=== PATIENT | female | born 1980 | race Caucasian/White ===

== ENCOUNTER 2017-02-01 08:58 | Emergency (ER) | payer MEDICAID, OTHER ==
[~2017-02-01] VITALS: Ht 165.1 cm; Wt 95.3 kg
[2017-02-01] MEDS ORDERED: ONDANSETRON ODT 4 MG TAB.RAPDIS SL ONE (09:38)
[2017-02-01] MEDS ORDERED: KETOROLAC TROMETHAMINE 60 MG INJ IM ONE ×2 (09:45→10:03)
[2017-02-01] MEDS ORDERED: HYDROCODONE/APAP 5-325MG TABLET PO ONE (09:45)
[2017-02-01] MEDS ORDERED: HYDROCODONE/APAP 5-325MG TABLET ONE (10:03)
[2017-02-01] MEDS ORDERED: ONDANSETRON ODT 4 MG TAB.RAPDIS ONE (10:03)
--- NOTE | 2017-02-01 10:03 | NUR ---
PT TAKEN OUT OF ROOM FOR XRAY
--- NOTE | 2017-02-01 10:16 | NUR ---
PT BACK FROM XRAY
--- NOTE | 2017-02-01 10:26 | NUR ---
PT PROVIDED SNACK
[2017-02-01 10:31] LABS: *BILIRUBIN,URIN NEGATIVE (NEGATIVE); *BLOOD, URINE Trace-lysed (NEGATIVE); *CLARITY,URINE CLEAR (CLEAR); *COLOR,URINE YELLOW (YELLOW); *KETONES,URINE NEGATIVE (NEGATIVE); *PROTEIN,URINE TRACE (NEGATIVE); *UROBILINOGEN,URINE 0.2 E.U./dl (NORMAL); LEUKOCYTE ESTERASE ,URINE TRACE (NEGATIVE); NITRITE, URINE NEGATIVE (NEGATIVE); UGLUCOSE NEGATIVE (NEGATIVE)
[2017-02-01 10:47] LABS: *URINE HCG, QUAL NEGATIVE (NEGATIVE)
[2017-02-01 10:52] LABS: BACTERIA,URINE FEW /HPF (NONE SEEN); RBC,URINE 0-3 /HPF (0-3); SQUAMOUS EPITHELIAL CELL,UR MANY /HPF (NONE SEEN)
[2017-02-01 11:27] VITALS: BP 128/76
--- NOTE | 2017-02-01 11:27 | NUR ---
Patient discharged to home in stable conditon. Written and verbal after care instructions given. Patient verbalizes understanding of instructions.
== END 2017-02-01 11:28 | disposition home or self-care (01) ==
LOC: ER 08:58
DX: S46.911A Strain of unspecified muscle, fascia and tendon at shoulder and upper arm level, right arm, initial encounter (principal); J45.909 Unspecified asthma, uncomplicated; V49.59XA Passenger injured in collision with other motor vehicles in traffic accident, initial encounter; Y93.89 Activity, other specified; Y92.410 Unspecified street and highway as the place of occurrence of the external cause; Y99.8 Other external cause status
CPT/HCPCS: 73020; 84703; A4663; J1885; Q0162